=== PATIENT | male | born 1945 | race Caucasian/White ===

== ENCOUNTER 2024-08-15 11:17 | Emergency (ER) | payer SELFPAY ==
[~2024-08-15] VITALS: Ht 190.5 cm; Wt 72.6 kg
[2024-08-15 11:48] VITALS: PULSE 79; RESP 16; TEMP 97.5; O2SAT 100
== END 2024-08-15 14:30 | disposition home or self-care (01) ==
LOC: ER 11:33
DX: Z46.6 Encounter for fitting and adjustment of urinary device (principal); N39.0 Urinary tract infection, site not specified; N32.89 Other specified disorders of bladder; I10 Essential (primary) hypertension; E78.5 Hyperlipidemia, unspecified
CPT/HCPCS: 99283